=== PATIENT | female | born 1935 | race Caucasian/White ===

== ENCOUNTER 2023-02-17 16:54 | Emergency (ER) | payer MEDICARE, BC ==
[2023-02-17 18:01] VITALS: BP 164/65; PULSE 98
[2023-02-17] MEDS ORDERED: Ondansetron 4 MG/2 ML SDV IV ONE (18:06)
[2023-02-17] MEDS ORDERED: Sodium Chloride 0.9% 10 ML Syringe FLUSH PRN (18:06)
[2023-02-17] MEDS ORDERED: Morphine 2 MG/ML SYRINGE IVPUSH ONE ×2 (18:06→20:26)
[2023-02-17 18:30] LABS: APPEARANCE,URINE CLEAR (CLEAR); BILIRUBIN,URINE NEGATIVE (NEGATIVE); COLOR,URINE YELLOW (YELLOW); GLUCOSE,URINE NEGATIVE (NEGATIVE); KETONES,URINE 40 (NEGATIVE); LEUKOCYTE ESTERASE,URINE NEGATIVE (NEGATIVE); NITRITE,URINE NEGATIVE (NEGATIVE); OCCULT BLOOD,URINE TRACE-INTACT (NEGATIVE); PH,URINE 8.5 (5.0-9.0); PROTEIN,URINE 30 (NEGATIVE); UROBILINOGEN,URINE 0.2 mg/dL (0.2-1.0)
[2023-02-17 18:34] LABS: BASOPHILS PERCENT AUTO 0.2 % (0.0-1.0); EOSINOPHILS PERCENT AUTO 0.6 % (1.0-3.0); HEMATOCRIT 35.4 % (37.0-47.0); HEMOGLOBIN 11.5 g/dL (12.0-16.0); MEAN CORPUSCULAR HEMOGLOBIN 30.1 pg (27.0-34.0); MEAN CORPUSCULAR HGB CONC 32.5 g/dL (33.0-35.0); MEAN CORPUSCULAR VOLUME 92.7 fL (80-100); MONOCYTES PERCENT AUTO 6.6 % (2-8); NEUTROPHILS PERCENT AUTO 85.6 % (42.2-75.2); PLATELET COUNT,PLT 225 10^3/uL (150-450); RED BLOOD CELL COUNT 3.82 10^6/uL (4.2-5.4); WHITE BLOOD CELL COUNT,WBC 13.2 10^3/uL (5.0-10.0)
[2023-02-17 18:36] LABS: RBC,URINE 0-5 /HPF (0-5); WBC,URINE 0-5 /HPF (0-5/HPF)
[2023-02-17 18:37] LABS: AMORPHOUS SEDIMENT,URINE RARE /HPF (NOT SEEN); BACTERIA,URINE RARE /HPF (0-FEW/HPF); EPITHELIAL CELLS,URINE RARE /HPF (NOT SEEN); MUCUS,URINE RARE /LPF (NOT SEEN)
[2023-02-17 18:54] LABS: A/G RATIO 0.88; ALANINE AMINOTRANSFERASE,ALT 246 U/L (14-59); ALKALINE PHOSPHATASE 80 U/L (46-116); ANION GAP 12.9 mEq/L (7-13); ASPARTATE AMNIOTRANSFERASE,AST 158 U/L (15-37); BILIRUBIN TOTAL 0.7 mg/dL (0.2-1.0); BLOOD UREA NITROGEN,BUN 18 mg/dL (7-18); BUN/CREATININE RATIO 18.4 (No establ ref range); CARBON DIOXIDE,CO2 32 mmol/L (21-32); CHLORIDE,CL 94 mmol/L (98-107); CREATINE KINASE,CK 47 U/L (16-191); CREATININE 0.98 mg/dL (0.55-1.02); ESTIMATED GFR 56 mL/min (>=60); GLUCOSE RANDOM 109 mg/dL (70-99); POTASSIUM,K 3.9 mmol/L (3.5-5.1); PROTEIN TOTAL,TP 6.4 g/dL (6.4-8.2); SODIUM,NA 135 mmol/L (136-145)
[2023-02-17] MEDS ORDERED: Ondansetron 4 MG/2 ML SDV IVPUSH ONE (20:26)
== END 2023-02-17 20:48 ==
LOC: DL.ED 16:54
DX: S75.002A Unspecified injury of femoral artery, left leg, initial encounter (principal); W01.0XXA Fall on same level from slipping, tripping and stumbling without subsequent striking against object, initial encounter; E78.00 Pure hypercholesterolemia, unspecified; I10 Essential (primary) hypertension; E03.9 Hypothyroidism, unspecified; Z79.82 Long term (current) use of aspirin
CPT/HCPCS: 36415; 51702; 73502; 80053; 81001; 82550; 85025; 96374; 96375; 96376; 99284; 99285; J2270; J2405; J3490

== ENCOUNTER 2024-03-21 15:41 | Inpatient (IN) | payer MEDICARE, BC ==
[2024-03-21] MEDS: HYDROmorphone 0.5 MG/0.5 ML Syringe IVPUSH ONE (16:38)
[2024-03-21] MEDS: Sodium Chloride 0.9% 500 ML IV SCH (16:38)
[2024-03-21] MEDS: HYDROmorphone 0.5 MG/0.5 ML Syringe ONE (16:39)
[2024-03-21 16:41] LABS: BASOPHILS PERCENT AUTO 0.2 % (0.0-1.0); EOSINOPHILS PERCENT AUTO 0.1 % (1.0-3.0); HEMOGLOBIN 11.3 g/dL (12.0-16.0); LYMPHOCYTES PERCENT AUTO 3.9 % (20.5-50.1); MEAN CORPUSCULAR HEMOGLOBIN 29.5 pg (27.0-34.0); MEAN CORPUSCULAR HGB CONC 32.3 g/dL (33.0-35.0); MEAN CORPUSCULAR VOLUME 91.4 fL (80-100); MONOCYTES PERCENT AUTO 11.8 % (2-8); PLATELET COUNT,PLT 172 10^3/uL (150-450); RED BLOOD CELL COUNT 3.83 10^6/uL (4.2-5.4); WHITE BLOOD CELL COUNT,WBC 17.1 10^3/uL (5.0-10.0)
[2024-03-21 17:09] LABS: ALBUMIN 2.5 g/dL (3.4-5.0); ANION GAP 10.7 mEq/L (7-13); BILIRUBIN TOTAL 0.5 mg/dL (0.2-1.0); BUN/CREATININE RATIO 37.4 (No establ ref range); C-REACTIVE PROTEIN 10.72 ng/dL (<=0.50); CALCIUM 8.6 mg/dL (8.5-10.1); CREATININE 1.23 mg/dL (0.55-1.02); EST CRCL DRUG DOSING (CG) 23.07 mL/min; MAGNESIUM 2.1 mg/dL (1.8-2.4); POTASSIUM,K 3.7 mmol/L (3.5-5.1); PROTEIN TOTAL,TP 5.9 g/dL (6.4-8.2)
[2024-03-21 17:11] LABS: A/G RATIO 0.74
[2024-03-21] MEDS: cefTRIAXone 2 GM Vial IVPUSH ONE (17:19)
[2024-03-21] MEDS ORDERED: Naloxone 2 MG/2 ML Syringe IVPUSH PRN (18:28)
[2024-03-21] MEDS ORDERED: Docusate Sodium 100 MG Cap PO PRN (18:28)
[2024-03-21] MEDS ORDERED: Sodium Chloride 0.9% 10 ML Syringe FLUSH PRN (18:28)
[2024-03-21] MEDS ORDERED: Sennosides/Docusate Sodium 50-8.6 MG Tab PO PRN (18:28)
[2024-03-21] MEDS ORDERED: Polyethylene Glycol 3350 Powder 17 GM Packet PO PRN (18:28)
[2024-03-21] MEDS: methylPREDNISolone Sodium Succinate 40 MG/1 ML SDV IVPUSH SCH (19:05)
[2024-03-21] MEDS: Azithromycin 500 MG in Sodium Chloride 0.9% 250 ML IV SCH (19:06)
[2024-03-21] MEDS: Melatonin 3 MG Tab PO PRN (20:18)
[2024-03-21] MEDS: guaiFENesin 600 MG Tab.ER PO SCH (20:18)
[2024-03-21] MEDS: Apixaban 5 MG Tab PO SCH (20:19)
[2024-03-21] MEDS: Sodium Chloride 0.9% 10 ML Syringe FLUSH SCH (20:20)
[2024-03-21] MEDS: Metoprolol Succinate 25 MG Tab.ER PO SCH (23:00)
[2024-03-21] MEDS: Albuterol/Ipratropium 3.0-0.5 MG/3 ML Neb Soln NEB SCH (23:00)
[2024-03-21] MEDS: HYDROmorphone 0.5 MG/0.5 ML Syringe IVPUSH PRN (23:01)
[2024-03-22] MEDS: Pantoprazole 40 MG Tab.CR PO SCH (05:37)
[2024-03-22] MEDS: Formoterol/Mometasone 200-5 MCG 8.8 GM Inhaler INH SCH (06:26)
[2024-03-22 07:02] LABS: BASOPHILS PERCENT AUTO 0.1 % (0.0-1.0); HEMATOCRIT 35.7 % (37.0-47.0); HEMOGLOBIN 11.3 g/dL (12.0-16.0); LYMPHOCYTES PERCENT AUTO 3.8 % (20.5-50.1); MEAN CORPUSCULAR HEMOGLOBIN 29.4 pg (27.0-34.0); MEAN CORPUSCULAR HGB CONC 31.7 g/dL (33.0-35.0); MONOCYTES PERCENT AUTO 4.6 % (2-8); NEUTROPHILS PERCENT AUTO 91.5 % (42.2-75.2); PLATELET COUNT,PLT 164 10^3/uL (150-450); RED BLOOD CELL COUNT 3.84 10^6/uL (4.2-5.4); WHITE BLOOD CELL COUNT,WBC 10.2 10^3/uL (5.0-10.0)
[2024-03-22 07:08] LABS: INR 0.9 (0.9-1.2); PROTHROMBIN TIME 9.9 SEC (9.0-12.0); PTT,PARTIAL THROMBOPLSTIN TIME 23.9 SEC (22.0-34.0)
[2024-03-22 07:14] LABS: ALBUMIN 2.4 g/dL (3.4-5.0); ANION GAP 11.6 mEq/L (7-13); BILIRUBIN TOTAL 0.3 mg/dL (0.2-1.0); BUN/CREATININE RATIO 37.3 (No establ ref range); C-REACTIVE PROTEIN 8.02 ng/dL (<=0.50); CALCIUM 8.7 mg/dL (8.5-10.1); CREATININE 1.26 mg/dL (0.55-1.02); EST CRCL DRUG DOSING (CG) 23.34 mL/min; MAGNESIUM 2.2 mg/dL (1.8-2.4); POTASSIUM,K 4.6 mmol/L (3.5-5.1); PROTEIN TOTAL,TP 6.2 g/dL (6.4-8.2)
[2024-03-22 07:15] LABS: A/G RATIO 0.63
[2024-03-22] MEDS: Clopidogrel 75 MG Tab PO SCH (08:14)
[2024-03-22] MEDS: Escitalopram 10 MG Tab PO SCH (08:14)
[2024-03-22] MEDS: Metoprolol Succinate 50 MG Tab.ER PO SCH (08:14)
[2024-03-22] MEDS: Levothyroxine 100 MCG Tab PO SCH (08:15)
[2024-03-22] MEDS: Folic Acid 1 MG Tab PO SCH (08:15)
[2024-03-22] MEDS: Multivitamin Tab PO SCH (08:15)
[2024-03-22] MEDS: Calcium Carbonate 500 MG Tab.Chew PO SCH (08:15)
[2024-03-22] MEDS: Montelukast 10 MG Tab PO SCH (08:15)
[2024-03-22] MEDS: Lisinopril 20 MG Tab PO SCH (08:15)
[2024-03-22] MEDS: Simvastatin 40 MG Tab PO SCH (08:15)
[2024-03-22] MEDS: Acetaminophen 325 MG Tab PO PRN (08:16)
[2024-03-22] MEDS: Aspirin 81 MG Tab.EC PO SCH (08:16)
[2024-03-22] MEDS: Acetaminophen/HYDROcodone 325-5 MG Tab PO PRN (10:23)
[2024-03-22] MEDS: cefTRIAXone 1 GM Vial IVPUSH SCH (13:20)
[2024-03-22] MEDS: Ondansetron 4 MG/2 ML SDV IVPUSH PRN (19:36)
[2024-03-22] MEDS: Saccharomyces Boulardii (Probiotic) 250 MG Cap PO SCH (20:55)
[2024-03-23] MEDS ORDERED: Formoterol/Mometasone 100-5 MCG 8.8 GM Inhaler INH SCH (06:00)
[2024-03-23 06:29] LABS: BASOPHILS PERCENT AUTO 0.1 % (0.0-1.0); HEMATOCRIT 36.3 % (37.0-47.0); HEMOGLOBIN 11.6 g/dL (12.0-16.0); LYMPHOCYTES PERCENT AUTO 4.6 % (20.5-50.1); MEAN CORPUSCULAR HEMOGLOBIN 29.1 pg (27.0-34.0); MEAN CORPUSCULAR VOLUME 91.2 fL (80-100); MONOCYTES PERCENT AUTO 5.5 % (2-8); NEUTROPHILS PERCENT AUTO 89.8 % (42.2-75.2); PLATELET COUNT,PLT 192 10^3/uL (150-450); RED BLOOD CELL COUNT 3.98 10^6/uL (4.2-5.4); WHITE BLOOD CELL COUNT,WBC 9.9 10^3/uL (5.0-10.0)
[2024-03-23] MEDS: Tiotropium Bromide 4 GM Inhalation Spray (2.5mcg/1 dose; 10 doses) INH SCH (06:37)
[2024-03-23 06:54] LABS: ALBUMIN 2.5 g/dL (3.4-5.0); ANION GAP 9.2 mEq/L (7-13); BILIRUBIN TOTAL 0.4 mg/dL (0.2-1.0); BUN/CREATININE RATIO 40.2 (No establ ref range); C-REACTIVE PROTEIN 4.1 ng/dL (<=0.50); CALCIUM 8.3 mg/dL (8.5-10.1); CREATININE 1.12 mg/dL (0.55-1.02); EST CRCL DRUG DOSING (CG) 26.25 mL/min; POTASSIUM,K 4.2 mmol/L (3.5-5.1); PROTEIN TOTAL,TP 6.1 g/dL (6.4-8.2)
[2024-03-23 06:56] LABS: A/G RATIO 0.69
[2024-03-23] MEDS ORDERED: hydrALAZINE 20 MG/ML SDV IVPUSH PRN (09:19)
[2024-03-23 18:56] LABS: APPEARANCE,URINE CLEAR (CLEAR); BILIRUBIN,URINE NEGATIVE (NEGATIVE); COLOR,URINE YELLOW (YELLOW); GLUCOSE,URINE NEGATIVE (NEGATIVE); KETONES,URINE NEGATIVE (NEGATIVE); LEUKOCYTE ESTERASE,URINE NEGATIVE (NEGATIVE); NITRITE,URINE NEGATIVE (NEGATIVE); OCCULT BLOOD,URINE TRACE-INTACT (NEGATIVE); PH,URINE 5.5 (5.0-9.0); PROTEIN,URINE 100 (NEGATIVE); UROBILINOGEN,URINE 0.2 mg/dL (0.2-1.0)
[2024-03-23 19:04] LABS: AMORPHOUS SEDIMENT,URINE MODERATE /HPF (NOT SEEN); BACTERIA,URINE MANY /HPF (0-FEW/HPF); EPITHELIAL CELLS,URINE FEW /HPF (NOT SEEN); MUCUS,URINE MODERATE /LPF (NOT SEEN); RBC,URINE 0-5 /HPF (0-5); WBC,URINE 0-5 /HPF (0-5/HPF)
[2024-03-24] MEDS: Cyclobenzaprine 10 MG Tab PO PRN (06:28)
[2024-03-24 06:39] LABS: HEMOGLOBIN 11.9 g/dL (12.0-16.0); LYMPHOCYTES PERCENT AUTO 5.3 % (20.5-50.1); MEAN CORPUSCULAR HEMOGLOBIN 29.2 pg (27.0-34.0); MEAN CORPUSCULAR HGB CONC 32.2 g/dL (33.0-35.0); MEAN CORPUSCULAR VOLUME 90.9 fL (80-100); MONOCYTES PERCENT AUTO 7.5 % (2-8); NEUTROPHILS PERCENT AUTO 87.2 % (42.2-75.2); PLATELET COUNT,PLT 214 10^3/uL (150-450); RED BLOOD CELL COUNT 4.07 10^6/uL (4.2-5.4); WHITE BLOOD CELL COUNT,WBC 11.2 10^3/uL (5.0-10.0)
[2024-03-24 07:19] LABS: ALBUMIN 2.4 g/dL (3.4-5.0); ANION GAP 8.4 mEq/L (7-13); BILIRUBIN TOTAL 0.4 mg/dL (0.2-1.0); CALCIUM 8.2 mg/dL (8.5-10.1); CREATININE 1.19 mg/dL (0.55-1.02); EST CRCL DRUG DOSING (CG) 24.71 mL/min; MAGNESIUM 2.1 mg/dL (1.8-2.4); POTASSIUM,K 4.4 mmol/L (3.5-5.1); PROTEIN TOTAL,TP 5.9 g/dL (6.4-8.2)
[2024-03-24 07:23] LABS: A/G RATIO 0.69
[2024-03-24] MEDS: amLODIPine 5 MG Tab PO SCH (08:37)
[2024-03-24] MEDS: Acetaminophen/HYDROcodone 325-5 MG Tab PO ONE (10:19)
[2024-03-24] MEDS: Levothyroxine 100 MCG Tab PO ONE (10:22)
[2024-03-24] MEDS: Acetaminophen/HYDROcodone 325-5 MG Tab PO PRN (16:08)
[2024-03-25] MEDS: Levothyroxine 100 MCG Tab PO SCH (04:00)
[2024-03-25 06:33] LABS: BASOPHILS PERCENT AUTO 0.1 % (0.0-1.0); HEMATOCRIT 31.7 % (37.0-47.0); HEMOGLOBIN 10.2 g/dL (12.0-16.0); LYMPHOCYTES PERCENT AUTO 2.7 % (20.5-50.1); MEAN CORPUSCULAR HEMOGLOBIN 29.1 pg (27.0-34.0); MEAN CORPUSCULAR HGB CONC 32.2 g/dL (33.0-35.0); MEAN CORPUSCULAR VOLUME 90.3 fL (80-100); MONOCYTES PERCENT AUTO 6.3 % (2-8); NEUTROPHILS PERCENT AUTO 90.9 % (42.2-75.2); PLATELET COUNT,PLT 175 10^3/uL (150-450); RED BLOOD CELL COUNT 3.51 10^6/uL (4.2-5.4); WHITE BLOOD CELL COUNT,WBC 9.1 10^3/uL (5.0-10.0)
[2024-03-25 06:55] LABS: ALBUMIN 2.2 g/dL (3.4-5.0); ANION GAP 6.3 mEq/L (7-13); BILIRUBIN TOTAL 0.4 mg/dL (0.2-1.0); BUN/CREATININE RATIO 39.8 (No establ ref range); C-REACTIVE PROTEIN 1.32 ng/dL (<=0.50); CALCIUM 8.2 mg/dL (8.5-10.1); CREATININE 1.13 mg/dL (0.55-1.02); EST CRCL DRUG DOSING (CG) 26.02 mL/min; MAGNESIUM 2.1 mg/dL (1.8-2.4); POTASSIUM,K 4.3 mmol/L (3.5-5.1); PROTEIN TOTAL,TP 5.1 g/dL (6.4-8.2)
[2024-03-25 06:57] LABS: A/G RATIO 0.76
[2024-03-26 06:00] LABS: BASOPHILS PERCENT AUTO 0.1 % (0.0-1.0); HEMATOCRIT 33.7 % (37.0-47.0); HEMOGLOBIN 10.9 g/dL (12.0-16.0); LYMPHOCYTES PERCENT AUTO 2.9 % (20.5-50.1); MEAN CORPUSCULAR HEMOGLOBIN 29.3 pg (27.0-34.0); MEAN CORPUSCULAR HGB CONC 32.3 g/dL (33.0-35.0); MEAN CORPUSCULAR VOLUME 90.6 fL (80-100); MONOCYTES PERCENT AUTO 5.1 % (2-8); NEUTROPHILS PERCENT AUTO 91.9 % (42.2-75.2); PLATELET COUNT,PLT 192 10^3/uL (150-450); RED BLOOD CELL COUNT 3.72 10^6/uL (4.2-5.4); WHITE BLOOD CELL COUNT,WBC 11.3 10^3/uL (5.0-10.0)
[2024-03-26 06:17] LABS: ALBUMIN 2.4 g/dL (3.4-5.0); BILIRUBIN TOTAL 0.4 mg/dL (0.2-1.0); BUN/CREATININE RATIO 38.6 (No establ ref range); C-REACTIVE PROTEIN 0.8 ng/dL (<=0.50); CALCIUM 8.3 mg/dL (8.5-10.1); CREATININE 1.14 mg/dL (0.55-1.02); EST CRCL DRUG DOSING (CG) 25.79 mL/min; MAGNESIUM 2.2 mg/dL (1.8-2.4); PROTEIN TOTAL,TP 5.4 g/dL (6.4-8.2)
[2024-03-26 06:19] LABS: A/G RATIO 0.8; ANION GAP 7.1 mEq/L (7-13); POTASSIUM,K 5.1 mmol/L (3.5-5.1)
[2024-03-26 12:08] VITALS: BP 128/66; PULSE 89
[2024-03-26] MEDS ORDERED: methylPREDNISolone Sodium Succinate 40 MG/1 ML SDV IVPUSH SCH (21:00)
== END 2024-03-26 13:46 | disposition other institution (70) | DRG 190 ==
LOC: DL.ED 15:41 → DL.MS 17:23 → DL.ED 17:30 → UNDODISIN 03-26 13:00
PROVIDERS: ADMIT Internal Medicine; ATTEND Internal Medicine
DX: M54.31 Sciatica, right side (principal); J44.0 Chronic obstructive pulmonary disease with (acute) lower respiratory infection; J18.9 Pneumonia, unspecified organism; I10 Essential (primary) hypertension; J44.9 Chronic obstructive pulmonary disease, unspecified; N17.9 Acute kidney failure, unspecified; I48.91 Unspecified atrial fibrillation; Z66 Do not resuscitate; Z79.82 Long term (current) use of aspirin; Z79.890 Hormone replacement therapy; E78.5 Hyperlipidemia, unspecified; E03.9 Hypothyroidism, unspecified; E78.00 Pure hypercholesterolemia, unspecified; K21.9 Gastro-esophageal reflux disease without esophagitis; M19.90 Unspecified osteoarthritis, unspecified site; F32.A Depression, unspecified; D64.9 Anemia, unspecified; E88.09 Other disorders of plasma-protein metabolism, not elsewhere classified; I25.10 Atherosclerotic heart disease of native coronary artery without angina pectoris; I11.9 Hypertensive heart disease without heart failure; D72.19 Other eosinophilia; J30.9 Allergic rhinitis, unspecified; M81.0 Age-related osteoporosis without current pathological fracture; Z86.73 Personal history of transient ischemic attack (TIA), and cerebral infarction without residual deficits; Z90.710 Acquired absence of both cervix and uterus; Z72.0 Tobacco use; Z79.899 Other long term (current) drug therapy; Z99.81 Dependence on supplemental oxygen; Z98.890 Other specified postprocedural states
CPT/HCPCS: 36415; 71045; 73502; 80053; 83735; 85025; 86140; 93005; 93010; 96374; 96375; 99285 ×2; J0696; J7040; 51701; 72131; 72192; 81001; 82306; 85610; 85730; 94640; 94664; A9270-GY; J0456; J2405; J2919; J7050; J7620-GY

== ENCOUNTER 2024-03-25 13:52 | Inpatient (IN) | payer MEDICARE, BC ==
[2024-03-26] MEDS ORDERED: Ondansetron 4 MG/2 ML SDV IVPUSH PRN (11:26)
[2024-03-26] MEDS ORDERED: Naloxone 2 MG/2 ML Syringe IVPUSH PRN (11:26)
[2024-03-26] MEDS ORDERED: Melatonin 3 MG Tab PO PRN (11:26)
[2024-03-26] MEDS ORDERED: Docusate Sodium 100 MG Cap PO PRN (11:26)
[2024-03-26] MEDS ORDERED: Sodium Chloride 0.9% 10 ML Syringe FLUSH PRN (11:26)
[2024-03-26] MEDS ORDERED: hydrALAZINE 20 MG/ML SDV IVPUSH PRN (11:26)
[2024-03-26] MEDS: HYDROmorphone 0.5 MG/0.5 ML Syringe IVPUSH PRN (16:36)
[2024-03-26] MEDS: Albuterol/Ipratropium 3.0-0.5 MG/3 ML Neb Soln NEB SCH (17:31)
[2024-03-26] MEDS: Formoterol/Mometasone 200-5 MCG 8.8 GM Inhaler INH SCH (17:35)
[2024-03-26] MEDS: cefTRIAXone 1 GM Vial IVPUSH SCH (19:32)
[2024-03-26] MEDS: Azithromycin 500 MG in Sodium Chloride 0.9% 250 ML IV SCH (20:28)
[2024-03-26] MEDS ORDERED: Sodium Chloride 0.9% 10 ML Syringe FLUSH SCH (21:00)
[2024-03-26] MEDS: methylPREDNISolone Sodium Succinate 40 MG/1 ML SDV IVPUSH SCH (21:14)
[2024-03-26] MEDS: guaiFENesin 600 MG Tab.ER PO SCH (21:15)
[2024-03-26] MEDS: Apixaban 5 MG Tab PO SCH (21:15)
[2024-03-26] MEDS: Saccharomyces Boulardii (Probiotic) 250 MG Cap PO SCH (21:15)
[2024-03-26] MEDS: Melatonin 3 MG Tab PO PRN (21:15)
[2024-03-26] MEDS: Acetaminophen/HYDROcodone 325-5 MG Tab PO PRN (21:16)
[2024-03-26] MEDS: Sodium Chloride 0.9% 10 ML Syringe FLUSH SCH (21:16)
[2024-03-27] MEDS: Pantoprazole 40 MG Tab.CR PO SCH (05:24)
[2024-03-27] MEDS: Levothyroxine 100 MCG Tab PO SCH (05:26)
[2024-03-27] MEDS: Tiotropium Bromide 4 GM Inhalation Spray (2.5mcg/1 dose; 10 doses) INH SCH (06:37)
[2024-03-27] MEDS: predniSONE 20 MG Tab PO SCH (09:24)
[2024-03-27] MEDS: Metoprolol Succinate 50 MG Tab.ER PO SCH (09:24)
[2024-03-27] MEDS: Aspirin 81 MG Tab.EC PO SCH (09:25)
[2024-03-27] MEDS: Clopidogrel 75 MG Tab PO SCH (09:26)
[2024-03-27] MEDS: Simvastatin 40 MG Tab PO SCH (09:29)
[2024-03-27] MEDS: Escitalopram 10 MG Tab PO SCH (09:29)
[2024-03-27] MEDS: Lisinopril 20 MG Tab PO SCH (09:30)
[2024-03-27] MEDS: Montelukast 10 MG Tab PO SCH (09:30)
[2024-03-27] MEDS: amLODIPine 5 MG Tab PO SCH (09:31)
[2024-03-27] MEDS: Multivitamin Tab PO SCH (09:31)
[2024-03-27] MEDS: Folic Acid 1 MG Tab PO SCH (09:31)
[2024-03-27] MEDS: Cyclobenzaprine 10 MG Tab PO PRN (09:32)
[2024-03-27] MEDS: Sodium Chloride 0.9% 10 ML Syringe FLUSH PRN (09:34)
[2024-03-27] MEDS: Acetaminophen 325 MG Tab PO PRN (11:57)
[2024-03-27] MEDS: Polyethylene Glycol 3350 Powder 17 GM Packet PO PRN (11:57)
[2024-03-27] MEDS: Calcium Carbonate 500 MG Tab.Chew PO SCH (20:30)
[2024-03-27] MEDS: Melatonin 3 MG Tab PO PRN (20:30)
[2024-03-28] MEDS: Sennosides/Docusate Sodium 50-8.6 MG Tab PO PRN (21:42)
[2024-03-29] MEDS: Bisacodyl 10 MG Supp RECTAL ONE (22:56)
[2024-03-29] MEDS: Lactulose Soln 10 GM/15 ML 30 ML UD Cup PO ONE (22:56)
[2024-03-30] MEDS: Lactulose Soln 10 GM/15 ML 30 ML UD Cup PO ONE (08:56)
[2024-03-30] MEDS: Bisacodyl 10 MG Supp RECTAL ONE (08:58)
[2024-03-30] MEDS: Fluconazole/Normal Saline 200 MG in Premix Bag 1 BAG IV ONE (22:33)
[2024-03-31 06:54] LABS: ALBUMIN 2.2 g/dL (3.4-5.0); ANION GAP 7.5 mEq/L (7-13); BILIRUBIN TOTAL 0.5 mg/dL (0.2-1.0); CALCIUM 8.5 mg/dL (8.5-10.1); CREATININE 0.88 mg/dL (0.55-1.02); EST CRCL DRUG DOSING (CG) 33.41 mL/min; MAGNESIUM 1.8 mg/dL (1.8-2.4); POTASSIUM,K 4.5 mmol/L (3.5-5.1)
[2024-03-31 07:01] LABS: A/G RATIO 0.79
[2024-03-31] MEDS: predniSONE 20 MG Tab PO SCH (08:57)
[2024-03-31] MEDS: Fluconazole 100 MG Tab PO SCH ×2 (08:59→09:05)
[2024-04-01 07:28] VITALS: BP 120/49
[2024-04-01 09:31] VITALS: PULSE 82
== END 2024-04-01 10:34 | disposition other institution (70) | DRG 555 ==
LOC: DL.MS 03-26 11:32
PROVIDERS: ADMIT Internal Medicine; ATTEND Internal Medicine
DX: M25.552 Pain in left hip (principal); E43 Unspecified severe protein-calorie malnutrition; J18.9 Pneumonia, unspecified organism; S32.009A Unspecified fracture of unspecified lumbar vertebra, initial encounter for closed fracture; S32.10XA Unspecified fracture of sacrum, initial encounter for closed fracture; J44.1 Chronic obstructive pulmonary disease with (acute) exacerbation; G81.94 Hemiplegia, unspecified affecting left nondominant side; J44.0 Chronic obstructive pulmonary disease with (acute) lower respiratory infection; B37.0 Candidal stomatitis; Z68.1 Body mass index [BMI] 19.9 or less, adult; M25.551 Pain in right hip; Z66 Do not resuscitate; M48.08 Spinal stenosis, sacral and sacrococcygeal region; H40.9 Unspecified glaucoma; I77.9 Disorder of arteries and arterioles, unspecified; I27.20 Pulmonary hypertension, unspecified; I70.0 Atherosclerosis of aorta; K21.9 Gastro-esophageal reflux disease without esophagitis; E03.9 Hypothyroidism, unspecified; J30.9 Allergic rhinitis, unspecified; M62.50 Muscle wasting and atrophy, not elsewhere classified, unspecified site; M19.90 Unspecified osteoarthritis, unspecified site; F32.A Depression, unspecified; M54.50 Low back pain, unspecified; I48.91 Unspecified atrial fibrillation; E78.00 Pure hypercholesterolemia, unspecified; D64.9 Anemia, unspecified; R54 Age-related physical debility; N18.30 Chronic kidney disease, stage 3 unspecified; D72.19 Other eosinophilia; G43.909 Migraine, unspecified, not intractable, without status migrainosus; E88.A Wasting disease (syndrome) due to underlying condition; I12.9 Hypertensive chronic kidney disease with stage 1 through stage 4 chronic kidney disease, or unspecified chronic kidney disease; E88.09 Other disorders of plasma-protein metabolism, not elsewhere classified; M81.0 Age-related osteoporosis without current pathological fracture; Z72.0 Tobacco use; Z86.73 Personal history of transient ischemic attack (TIA), and cerebral infarction without residual deficits; Z99.81 Dependence on supplemental oxygen; Z79.899 Other long term (current) drug therapy; Z90.710 Acquired absence of both cervix and uterus; Z98.890 Other specified postprocedural states
CPT/HCPCS: 36415; 80053; 83735; 94060; 94640; 99306; 99309; 99315; A9270-GY; J0456; J1450; J2919; J7050; J7512; J7620-GY

== ENCOUNTER 2024-05-16 10:57 | Inpatient (IN) | payer MEDICARE, BC ==
[2024-05-16 10:26] LABS: O2 DELIVERY DEVICE NASAL CANNULA
[2024-05-16 10:27] LABS: BASOPHILS PERCENT AUTO 0.1 % (0.0-1.0); EOSINOPHILS PERCENT AUTO 0.1 % (1.0-3.0); HEMOGLOBIN 10.3 g/dL (12.0-16.0); LYMPHOCYTES PERCENT AUTO 7.9 % (20.5-50.1); MEAN CORPUSCULAR HEMOGLOBIN 29.6 pg (27.0-34.0); MEAN CORPUSCULAR HGB CONC 31.2 g/dL (33.0-35.0); MEAN CORPUSCULAR VOLUME 94.8 fL (80-100); MONOCYTES PERCENT AUTO 9.5 % (2-8); NEUTROPHILS PERCENT AUTO 82.4 % (42.2-75.2); PLATELET COUNT,PLT 298 10^3/uL (150-450); RED BLOOD CELL COUNT 3.48 10^6/uL (4.2-5.4); WHITE BLOOD CELL COUNT,WBC 13.7 10^3/uL (5.0-10.0)
[2024-05-16 10:29] LABS: PH,VENOUS 7.35 (7.31-7.41)
[2024-05-16 10:30] LABS: BICARBONATE,VENOUS 35 mmol/l (19-25); O2 SATURATION VENOUS 28.5 % (60-80); PCO2 VENOUS 64 mmHg (41-51); PO2 VENOUS 27 mmHg (35-42)
[2024-05-16] MEDS: Albuterol/Ipratropium 3.0-0.5 MG/3 ML Neb Soln NEB ONE (10:42)
[2024-05-16 10:50] LABS: ALBUMIN 2.4 g/dL (3.4-5.0); ANION GAP 10.4 mEq/L (7-13); BILIRUBIN TOTAL 0.3 mg/dL (0.2-1.0); BUN/CREATININE RATIO 26.3 (No establ ref range); CALCIUM 9.7 mg/dL (8.5-10.1); CREATININE 0.95 mg/dL (0.55-1.02); EST CRCL DRUG DOSING (CG) 24.33 mL/min; LACTIC ACID 1.5 mmol/L (0.4-2.0); MAGNESIUM 1.8 mg/dL (1.8-2.4); POTASSIUM,K 4.4 mmol/L (3.5-5.1); PROTEIN TOTAL,TP 6.6 g/dL (6.4-8.2)
[2024-05-16 10:51] LABS: A/G RATIO 0.57
[2024-05-16] MEDS ORDERED: Cyclobenzaprine 10 MG Tab PO PRN (15:07)
[2024-05-16] MEDS ORDERED: Bisacodyl 10 MG Supp RECTAL PRN (15:07)
[2024-05-16] MEDS ORDERED: Fluconazole 100 MG Tab PO SCH (15:15)
[2024-05-16] MEDS: Azithromycin 250 MG in Sodium Chloride 0.9% 250 ML IV SCH (15:37)
[2024-05-16] MEDS: methylPREDNISolone Sodium Succinate 40 MG/1 ML SDV IVPUSH SCH (15:38)
[2024-05-16] MEDS: Albuterol/Ipratropium 3.0-0.5 MG/3 ML Neb Soln NEB SCH (17:24)
[2024-05-16] MEDS: Acetaminophen 325 MG Tab PO PRN (17:56)
[2024-05-16] MEDS: Heparin Sodium 5,000 Units/ML Vial SUBCUT SCH (21:16)
[2024-05-16] MEDS: guaiFENesin 600 MG Tab.ER PO SCH (21:16)
[2024-05-16] MEDS: Melatonin 3 MG Tab PO PRN (21:22)
[2024-05-17] MEDS: Pantoprazole 40 MG Tab.CR PO SCH (05:11)
[2024-05-17 06:38] LABS: HEMATOCRIT 28.5 % (37.0-47.0); HEMOGLOBIN 8.9 g/dL (12.0-16.0); LYMPHOCYTES PERCENT AUTO 4.1 % (20.5-50.1); MEAN CORPUSCULAR HEMOGLOBIN 29.4 pg (27.0-34.0); MEAN CORPUSCULAR HGB CONC 31.2 g/dL (33.0-35.0); MEAN CORPUSCULAR VOLUME 94.1 fL (80-100); MONOCYTES PERCENT AUTO 1.9 % (2-8); PLATELET COUNT,PLT 235 10^3/uL (150-450); RED BLOOD CELL COUNT 3.03 10^6/uL (4.2-5.4)
[2024-05-17 06:58] LABS: ANION GAP 12.3 mEq/L (7-13); CALCIUM 9.4 mg/dL (8.5-10.1); CREATININE 0.86 mg/dL (0.55-1.02); EST CRCL DRUG DOSING (CG) 25.19 mL/min; POTASSIUM,K 4.3 mmol/L (3.5-5.1)
[2024-05-17] MEDS: Simvastatin 40 MG Tab PO SCH (08:17)
[2024-05-17] MEDS: Escitalopram 10 MG Tab PO SCH (08:17)
[2024-05-17] MEDS: Albuterol/Ipratropium 3.0-0.5 MG/3 ML Neb Soln NEB PRN (08:18)
[2024-05-17] MEDS: Levothyroxine 100 MCG Tab PO SCH (08:18)
[2024-05-17] MEDS: Polyethylene Glycol 3350 Powder 17 GM Packet PO SCH (08:18)
[2024-05-17] MEDS: Clopidogrel 75 MG Tab PO SCH (08:18)
[2024-05-17] MEDS: Montelukast 10 MG Tab PO SCH (08:18)
[2024-05-17] MEDS: Metoprolol Succinate 50 MG Tab.ER PO SCH (08:31)
[2024-05-17] MEDS: amLODIPine 5 MG Tab PO SCH (08:31)
[2024-05-17] MEDS: Lisinopril 20 MG Tab PO SCH (08:31)
[2024-05-17] MEDS: Apixaban 5 MG Tab PO SCH (10:27)
[2024-05-17] MEDS ORDERED: Diclofenac Sodium 1% Gel 100 GM Tube TOP PRN (11:03)
[2024-05-17] MEDS: LORazepam 2 MG/ML SDV IVPUSH ONE (11:08)
[2024-05-17] MEDS: Azithromycin 250 MG in Sodium Chloride 0.9% 250 ML IV SCH (16:08)
[2024-05-18 08:55] LABS: HEMATOCRIT 29.4 % (37.0-47.0); HEMOGLOBIN 9.1 g/dL (12.0-16.0); MEAN CORPUSCULAR HEMOGLOBIN 29.5 pg (27.0-34.0); MEAN CORPUSCULAR VOLUME 95.5 fL (80-100); PLATELET COUNT,PLT 268 10^3/uL (150-450); RED BLOOD CELL COUNT 3.08 10^6/uL (4.2-5.4); WHITE BLOOD CELL COUNT,WBC 11.8 10^3/uL (5.0-10.0)
[2024-05-18 09:04] LABS: LYMPHOCYTES PERCENT AUTO 5.5 % (20.5-50.1); MONOCYTES PERCENT AUTO 4.7 % (2-8); NEUTROPHILS PERCENT AUTO 89.8 % (42.2-75.2)
[2024-05-18 10:04] LABS: LYMPHOCYTES PERCENT MAN 5 % (20-50); MONOCYTES PERCENT MAN 4 % (2-8); SEG NEUTROPHILS PERCENT MAN 91 % (42-75)
[2024-05-18 11:37] LABS: PERCENT FE SATURATION 10.8 % (20.0-50.0)
[2024-05-18] MEDS: predniSONE 20 MG Tab PO SCH ×2 (12:46→20:30)
[2024-05-18] MEDS: Docusate Sodium 100 MG Cap PO PRN (16:05)
[2024-05-19 06:29] LABS: BASOPHILS PERCENT AUTO 0.1 % (0.0-1.0); HEMATOCRIT 30.9 % (37.0-47.0); HEMOGLOBIN 9.6 g/dL (12.0-16.0); LYMPHOCYTES PERCENT AUTO 7.1 % (20.5-50.1); MEAN CORPUSCULAR HEMOGLOBIN 29.1 pg (27.0-34.0); MEAN CORPUSCULAR HGB CONC 31.1 g/dL (33.0-35.0); MEAN CORPUSCULAR VOLUME 93.6 fL (80-100); MONOCYTES PERCENT AUTO 7.5 % (2-8); NEUTROPHILS PERCENT AUTO 85.3 % (42.2-75.2); PLATELET COUNT,PLT 288 10^3/uL (150-450); WHITE BLOOD CELL COUNT,WBC 13.2 10^3/uL (5.0-10.0)
[2024-05-19 11:42] LABS: MYCOPLASMA IGM 0.06 U/L (<=0.76)
[2024-05-19 12:37] VITALS: BP 132/62; PULSE 87
[2024-05-20] MEDS ORDERED: Levothyroxine 100 MCG Tab PO SCH (06:00)
== END 2024-05-19 13:10 | disposition home or self-care (01) | DRG 189 ==
LOC: DL.ED 10:57 → DL.MS 13:16 → OBSVTOIN 05-18 17:44
PROVIDERS: ADMIT Internal Medicine; ATTEND Internal Medicine
DX: J96.01 Acute respiratory failure with hypoxia (principal); E46 Unspecified protein-calorie malnutrition; Z68.1 Body mass index [BMI] 19.9 or less, adult; J44.1 Chronic obstructive pulmonary disease with (acute) exacerbation; F05 Delirium due to known physiological condition; I48.91 Unspecified atrial fibrillation; E78.00 Pure hypercholesterolemia, unspecified; Z79.890 Hormone replacement therapy; I10 Essential (primary) hypertension; J44.9 Chronic obstructive pulmonary disease, unspecified; K21.9 Gastro-esophageal reflux disease without esophagitis; M19.90 Unspecified osteoarthritis, unspecified site; F32.A Depression, unspecified; E03.9 Hypothyroidism, unspecified; Z66 Do not resuscitate; I25.10 Atherosclerotic heart disease of native coronary artery without angina pectoris; G47.00 Insomnia, unspecified; B37.9 Candidiasis, unspecified; D64.9 Anemia, unspecified; Z79.51 Long term (current) use of inhaled steroids; Z79.02 Long term (current) use of antithrombotics/antiplatelets; Z79.52 Long term (current) use of systemic steroids; Z79.899 Other long term (current) drug therapy; Z79.2 Long term (current) use of antibiotics; Z79.01 Long term (current) use of anticoagulants; Z99.81 Dependence on supplemental oxygen; Z86.73 Personal history of transient ischemic attack (TIA), and cerebral infarction without residual deficits; Z98.49 Cataract extraction status, unspecified eye; Z90.710 Acquired absence of both cervix and uterus
CPT/HCPCS: 36415 ×3; 71045; 73502; 80048; 80053; 82803; 83540; 83550; 83605; 83735; 84484; 85025 ×3; 86738; 87428; 93005; 93010; 94640 ×6; 96365; 96372 ×2; 96375 ×2; 96376 ×2; 99223; 99233; 99284; 99285; A9270 ×41; G0378 ×4; J0456 ×2; J1644 ×2; J2060; J2919 ×4; J7050; J7512; 99232; 99239